=== PATIENT | male | born 1945 | race Caucasian/White ===

== ENCOUNTER 2019-02-11 12:51 | Day surgery (SDC) | payer OTHER, SELFPAY ==
[2019-02-08 07:59] VITALS: BMI 36.0
[2019-02-11] VITALS (13 sets, daily range): BP systolic 104–162; BP diastolic 52–90; PULSE 58–81; RESP 8–20; TEMP 36–36.8; O2SAT 94–99; BMI 35.4
--- NOTE | 2019-02-11 15:31 | PM.OP.1 ---
Operative Date/Time/Diagnoses Date of procedure: 02/11/19 Time of procedure: 16:45 Pre-op diagnosis: Rupture left Achilles tendon S86.012 Post-op diagnosis: same Procedure & Clinicians Procedure: Repair left Achilles tendon CPT code 12281 Same procedure as scheduled: Yes Indications: The patient is a 73-year-old male sustained a complete Achilles tendon rupture on the left side approximately 3 weeks ago. Patient presented to clinic with an MRI demonstrating a 2 cm gap. The injury was already over 2-week-old when he presented to my care. We discussed options for non operative and operative treatment. Based on the patient's activity level and established a gap operative fixation was elected. Patient is a nondiabetic does not smoke. Risks benefits and alternatives to the surgery were discussed with the patient in detail including but not limited to re-rupture, infection, wound healing problems, amputation, DVT, pulmonary embolism, stroke, paralysis, . Patient elected to proceed with surgery. Consent was signed in the office. Surgeon: Samantha Uriarte Click Yes if Unassisted: Yes Anesthesia Type: General and Local Operative Notes Findings: Complete rupture left Achilles tendon, midsubstance approximately 3 cm diastasis Closure Type: primary Specimen(s): none sent Estimated Blood Loss (mL): 5 Blood products transfused: none Tourniquet time (min): 25 Procedure in detail: Patient was seen in the preoperative area site of surgery was marked and informed consent confirmed. Final questions were answered. Patient was then brought back to the operating room by the anesthesia team. General anesthesia was administered. The patient was then positioned in the prone position on the operative table. All bony prominences were padded. A well-padded thigh tourniquet was placed on the operative leg. SCD was placed on the nonoperative leg. Patient's left lower extremity was prepped and draped in the standard sterile fashion. A formal time-out procedure was performed confirming the patient's site and side of surgery and administration of appropriate preoperative antibiotics. all were in agreement. An Esmarch bandage was utilized for exsanguination and the tourniquet was elevated to 250 mm of mercury and stayed there for approximately 25 minutes. Approximately 7cm incision was made just medial to the Achilles tendon centered over the area of the rupture and palpable gap. This was taken down through the skin and subcutaneous tissue. Plane over the paratenon was developed and this was opened just midline to the skin incision as to be not directly in line with it. There was thick scar at the location of the rupture. This was opened and the Achilles tendon proper identified. Blunt finger dissection was used to mobilize the distal and proximal ends of the Achilles tendon. Next a malleable retractor was placed in between the Achilles and the paratenon which I dissected this free proximally fully mobilizing the proximal limb. Next the fascia of the posterior compartment was exposed and this was opened to help relieve tension on the paratenon closure provide a blood supply. Mop ends of the Achilles tendon were trimmed slightly. With mobilization of the proximal segment this could be easily approximated back to the distal segment and no further V-Y lengthening or Lydia were indicated. At this point, a #2. FiberWire was placed in each end of the Achilles tendon in Krackow fashion this provided a good secure a grasping stitch on each end of the rupture. Next a bump was placed under the toes to approximate 20? of plantar flexion and the FiberWire suture ends were brought together and tied reapproximating the tendon. Next 0 Vicryl sutures were used in a figure-eight fashion at the edge of the repair. The repair was tested and there was no gapping. Saldana test was restored. And the patient's resting position was similar to the contralateral lower extremity in plantar flexion. At this point the wound was irrigated thoroughly with saline. The tourniquet was released and hemostasis achieved. Paratenon was closed with 0 Vicryl suture. Subcutaneous closure was performed with 3 0 Vicryl and 4 0 Monocryl. 3- 0 and 4-0 nylon were used in the skin. Repair was noted to have excellent tension and resting posture. Xeroform gauze and Webril were placed. Bulky Apple dressing and posterior plantar flexion splint were applied. Patient was then woken from anesthesia and taken to the PACU in good condition. There were no immediate complications from the procedure. All counts were correct. Complications: none Condition: stable Disposition: PACU Plan for aftercare: Nonweightbearing left lower extremity. Keep splint clean dry and intact. Follow up in 2 weeks in clinic for suture removal and transition to boot with heel lifts. And progressive weight-bearing as long his incision is healing well. Start taking aspirin 325 mg b.i.d. on postop day 1 for DVT prophylaxis
--- NOTE | 2019-02-11 15:31 | PM.PREOP ---
Pre-operative Note Interval Note History & Physical reviewed/Exam performed by Physician: Yes Changes to H&P: No
[2019-02-11] MEDS: CEFAZOLIN 2 GM/100 ML FROZ.PIGGY IV (16:23)
[2019-02-11] MEDS: BUPIVACAINE 0.25% W/ EPI 30 ML VIAL INJ (17:00)
[2019-02-11] MEDS: HYDROCODONE/ACET 5/325 TABLET 1 TAB PO (18:37)
--- NOTE | 2019-02-11 18:41 | SUR.PHASEI ---
PACU transfer note: VSS, O2 sat WNL on room air. Dressing to left lower ext CDI. Pain level 3/10. Medicated with oral pain med. Tolerating po without nausea. Telephone report called to Darren TUTTLE. Stable for transfer to IP room 221. Transported via inpatient bed. Tika Gan RN
[2019-02-11] MEDS: OXYCODONE IR 5 MG TABLET PO (20:26)
[2019-02-12 04:40] VITALS: BP 144/79; PULSE 70; RESP 19; TEMP 36.6; O2SAT 97
--- NOTE | 2019-02-12 04:53 | PC.NURSE ---
Addendum entered by Susan Villafana R.N. 02/12/19 05:13: Pt voided 140ml, had a moderately wet brief, with 240ml remaining on bladder scan. Original Note: Pt has not met post op void by 8 hrs, bladder scanned for max approx of 295ml. Pt reports hx of bladder difficulties and states that the water is not good. EXAMINING CHAIR ASSEMBLER offered pt different fluid options to facilitate hydration, also assisted pt to edge of bed to see if that would encourage urination.
[2019-02-12] MEDS: OXYCODONE IR 5 MG TABLET PO (05:39)
[2019-02-12 07:58] VITALS: BP 144/81; PULSE 73; RESP 18; TEMP 36.6; O2SAT 97
[2019-02-12] MEDS: SODIUM CHLORIDE 0.9% FLUSH 10 ML IV (08:51)
[2019-02-12 12:00] VITALS: BP 146/74; PULSE 70; RESP 18; TEMP 36.7; O2SAT 97
--- NOTE | 2019-02-12 12:07 | CM.DANOTE ---
Addendum entered by Esther Mcarthur 02/12/19 14:25: Below addendum note on wrong patient disregard. Addendum entered by Esther Mcarthur 02/12/19 14:22: Spoke with Dr. Orona and orders for d/c obtained. Patient's anxiety/depression medication decreased to 5mg per day. Therefore, hospital exempt PASRR obtained and signed by MD due to change. Pick scheduled to be picked up at 3:00pm. Original Note: DCP/Assessment: Reviewed chart. Patient is a 73yr old male admitted to I. for repair of left achilles tendon. No PCP listed. Primary payor is [facility]. Met briefly with patient explained CM/SW role. Patient alert and oriented at time of visit. Patient reports that he will be going home today. Spouse to provide transport. Patient denies any d/c planning needs. P: Home today. DENISHA Nguyen Discharge Planning/Care Management CM Discharge Assessment Start: 02/12/19 12:04 Freq: Status: Active Protocol: Document 02/12/19 12:04 [facility] (Rec: 02/12/19 12:07 [facility] [id number]) Discharge Planning Assessment Assigned Youth Manager DENISHA Nguyen Contact Information Jennifer Beavers (spouse) Advance Directives? No History Provided By Patient Medical Record Prior Living Arrangements House Household Members spouse Type of transporation used prior to Drives own vehicle admit Independent with ADL's Yes Is patient alert and oriented? Yes Barriers to Discharge No Transportation Arrangement Spouse to provide transport. Whiteboard Updated in Patient Room with Yes name and ext. # of Youth Manager Review Status In Process Next Review Type Continued Stay Review Pre-Anesthesia Assessment Start: 02/08/19 07:59 Freq: Status: Complete Protocol: Document 02/08/19 07:59 [facility] (Rec: 02/08/19 08:10 [facility] [id number]) Pre-Anesthesia Assessment Patient Information Reviewed Via Chart Review H&P Completed Within 30 Days Yes Primary Care Provider Tom Vallejo Seen Specialist in Last 12 Months Yes Specialist Seen Orthopedist Urologist Comment Most recent PCP note in surgery folder for dos Primary Language Irish Enterprise Security Architect Required No Height 170.18 cm Weight 104.326 kg Body Mass Index (BMI) 36.0 Anesthesia Review Requested No Unarmed Security Officer No alcohol intake current Alcohol Intake Frequency Other: Occasional Smoking Status Former smoker Pain Present Pain Reported Musculoskeletal Symptoms Abnormal Gait Difficulty Walking Joint Pain Joint Swelling Muscle Cramps Muscle Weakness History of Falling (Recent or History of Yes ) Patient is completely paralyzed or No completely immobile Mental Status Oriented to own ability Does patient have NELSON/SOB No Hx Sleep Apnea Yes: Has not been using recently CPAP/BIPAP use prescribed not used Currently Taking a Beta Nathan Yes: Atenolol Hx Chest Pain No Hx SOB No Hx Syncope or Dizziness No Anti-Coagulant Therapy Yes: ASA 325mg bid per Surgeon -risk blood clots w/ankle injury Cardiac Testing No Hx Pacemaker/ICD No Pacemaker Rep Required? No Bladder Pattern Incontinent Retention Urinary Catheter Present No Hx Urinary Self Catheterization No Comment Hx prostate cancer, under care in [place] Diabetes No Patient Discharge Plan Description Return Home
--- NOTE | 2019-02-12 12:35 | PC.NURSE ---
Day shift: Pt left unit at approx 1235 in . Paperwork signed and all questions answered. Pt already has MD scrips filled. Pt has all personal belongings. Driven home in private car by spouse.
== END 2019-02-12 12:36 | disposition home or self-care (01) ==
LOC: OR 19:39 → AC 19:41
PROVIDERS: Visit Provider Orthopaedic Surgery Foot and Ankle Surgery
PROC: (CPT 27650; principal; 2019-02-11 16:15)
DX: S86.012A Strain of left Achilles tendon, initial encounter (principal); I10 Essential (primary) hypertension; W11.XXXA Fall on and from ladder, initial encounter; Z85.46 Personal history of malignant neoplasm of prostate; Z87.891 Personal history of nicotine dependence
CPT/HCPCS: 27650; J0690; J1100; J2405; J2704; J3010